=== PATIENT | male | born 1995 | race African-American/Black ===

== ENCOUNTER 2016-10-28 13:09 | Emergency (ER) | payer SELFPAY ==
[~2016-10-28] VITALS: Ht 198.1 cm; Wt 100.5 kg
[~2016-10-28 13:09] MED LIST: NO ROUTINE MEDS
[2016-10-28 13:17] VITALS: Ht 198.1 cm; Wt 100.5 kg
[2016-10-28] MEDS ORDERED: IBUP200C62 PO (13:27)
--- NOTE | 2016-10-28 13:41 | NUR ---
I&D INCISION AND DRAINAGE BY AT THIS TIME PATIENT TOLERATED WELL
[2016-10-28] MEDS ORDERED: LIDOCAINE 1% (10mg/ml) 30ml SDV SQ ONE (13:45)
[2016-10-28] MEDS ORDERED: SULF1TAB42 PO (13:57)
--- NOTE | 2016-10-28 13:57 | ERPDOC ---
Departure Disposition Decision Date: October 28, 2016 Disposition Decision Time: 14:02 Disposition: 01 DISCHARGED HOME, SELF-CARE Impression Impression Impression: Primary Impression: Abscess Severity: Mild Condition: Improved Seen By: Physician only Patient Instructions: Abscess (ED) Problems/Meds/Labs Reviewed?: Yes Medications reviewed and manag: Yes Follow up care ordered?: Yes Mental Status: Alert, Oriented Scripts Hydrocodone/Acetaminophen ([place] 5-325 Tablet) 5-325 Tablet 1 TAB PO Q4HR Y for PAIN for 3 Days, #18 TAB 0 Refills Prov: LIZZY STRINGER DO 10/28/16 Sulfamethoxazole/Trimethoprim (Bactrim Ds Tablet) 1 Each Tablet 2 TAB PO BID for 10 Days, #40 TAB 0 Refills Prov: LIZZY STRINGER DO 10/28/16 HPI - Skin General General Chief Complaint: Skin Rash/Abscess Stated Complaint: POSS CYST ON L LEG Time Seen by Provider: 13:28 Source: patient Exam Limitations: no limitations HPI - Skin General Initial Comments 21-year-old male presents to the emergency department with a chief complaint of an abscess to the left groin. Patient has a history of MRSA in the past. Patient noted onset of abscess approximately 3-4 days ago. Symptoms have progressed in a gradual manner since onset. Patient notes moderate pain locally at the area of abscess. No radiation. Pain is sharp. Pain increases with movement and direct palpation of the affected area. Pain improves with rest and positioning. Patient has no other complaints or associated symptoms. Occurred At: home Onset: Gradual Allergies: Coded Allergies: amoxicillin (Verified Allergy, Intermediate, RASH, 10/28/16) milk (Verified Allergy, Unknown, 10/28/16) Uncoded Allergies: COCKROACHES (Allergy, Mild, RASH, 10/28/16) ENVIROMENTAL ALLERGIES (Allergy, Unknown, 08/22/15) Past History Past Medical History Pt denies signifigant H Surgical History Denies Surgeries Family History Family History: Negative Social History Smoking Status: Never smoker Substance Use Type: does not use Alcohol Intake: none Review of Systems Constitutional Constitutional: DENIES: chills, fever Eyes General: DENIES: erythema, exudate Lids/Accessories: DENIES: erythema, swelling Vision: DENIES: acuity, blurring ENMT Ears: DENIES: drainage, pain Hearing: DENIES: hearing loss Balance: DENIES: ataxia, falling to one side Sinuses: DENIES: congestion, pain Nose: DENIES: nosebleeds, pain Mouth/Throat: DENIES: painful swallowing, sore throat Teeth: DENIES: pain Jaw: DENIES: pain Cardiovascular Cardiac: DENIES: chest pain, dyspnea on exertion Rhythm/Rate: DENIES: irregular beat, palpitations Vascular: DENIES: pedal edema, unilateral swelling Pulmonary Respiratory: DENIES: cough, dyspnea, pleuritic chest pain, sputum GI Upper Abdomen: DENIES: nausea, pain, vomiting Lower Abdomen: DENIES: diarrhea, pain General: DENIES: dysuria, frequency, urgency Musculoskeletal General: DENIES: joint pain, tenderness Integumentary Skin: other (abscess), DENIES: itching, rash Neurological General: DENIES: change in strength, headache, numbness, weakness Psychiatric Psychiatric: DENIES: emotional instability, suicidal ideation/attempt Endocrine Endocrine: DENIES: polydipsia, polyphagia Hematologic/Lymphatic Hematologic/Lymphatic: DENIES: frequent nosebleeds, lymphadenopathy Allergic/Immunological Allergic/Immunoligical: DENIES: allergic reactions, hives Physical Exam General General Nourishment: well nourished, well developed, appears stated age, no acute distress, adult General Body Habitus: well groomed Vitals and Pain First Documented Vital Signs Date Time Temp Pulse Resp B/P Pulse Ox O2 Delivery O2 Flow Rate FiO2 10/28/16 13:17 98.3 88 18 137/75 97 Room Air Weight: Kilograms: 100.500 Height (feet): 6 Height (inches): 6.00 Triage Pain Scale: RN VS reviewed by Provider: Yes Normal Exams: Head: Normocephalic w/o trauma Eyes: Pupils are PERRLA w/ EOMI, No scleral icterus, irritation, or foreign bodies noted ENMT: No facial trauma, nasal exudates, pharyngeal erythema, or exudates are noted Dental: No fractured, loose, or missing teeth noted Neck: Full range of motion, without adenopathy, JVD, bruits or thyromegaly Chest/Resp: Clear all bajwa, with good airflow, and symmetry bilaterally CV: Regular rate and rhythm, without murmur or gallop, Pulses 2+ all extremities, capillary refill, <2 seconds all ext., no pedal edema noted Abdomen: Bowel sounds positive, soft, non-tender, non-distended, no hepatosplenomegaly, masses or bruits noted Lymphatic: No lymphadenopathy, or lymphedema noted Musculoskeletal: No tenderness, or deformity noted, good range of motion, all extremities Integumentary: No rashes, hives, or bruising noted, hair and nails, without abnormality Neurologic: Patient is alert, and oriented, cranial nerves, motor/sensory/ cerebellar, exams w/o gross deficits, to observation Psychiatric: Patient exhibits, appropriate attention, emotion and affect Integumentary (brief) Comments 3-4 cm area of fluctuant tissue consistent with abscess. There is pointing. No expanding cellulitis or lymphangitis. Induration is present. Differential Diagnoses Considering: Abrasion, Abscess, Carbuncle, Folliculitis, Furuncle Procedures Incision and Drainage Procedure I&D : Site: L groin Prep: hibiclens Anesthetic: 1% Lidocaine Blade Size: #11 Drainage: moderate purulent Amount (cc's): 10 cc Culture Obtained?: No Dressing: Yes Packing: plain gauze Antibiotics: bactrim ds Progress Results/Orders Orders Procedure Category Date Status Time Hydrocodone/Acetaminophen PHA 10/28/16 Complete ([place] 7.5/325 13:45 Lidocaine 1% PHA 10/28/16 Complete (Xylocaine 1%) 13:45 Medications Current ED Medications Acetaminophen/ Hydrocodone Bitart ([place] 7.5/325) 1 tab O ONCE PO Last administered on 10/28/16 13:39; Start 10/28/16 at 13:45; Stop 10/28/16 at 13:47 ; Status DC Lidocaine HCl (Xylocaine 1%) 100 mg O ONCE SQ Last administered on 10/28/16 13:41; Start 10/28/16 at 13:45; Stop 10/28/16 at 13:47; Status DC Progress Progress Patient was given [place] 7.5 mg by mouth 1 in the emergency department with improvement of symptoms. Patient underwent incision and drainage of the abscess without complication in the emergency Department. Patient tolerated procedure well and without difficulty. Patient is discharged home in improved condition. Prescription for [place] and Bactrim DS are provided. Patient is in agreement with the current plan of management. Patient is to follow-up as instructed with wound check in 2 days. Patient is to return to the emergency department if his condition worsens or changes in any manner. LIZZY STRINGER DO October 28, 2016 13:57
[2016-10-28] MEDS ORDERED: HYDR-4246 PO (14:03)
[2016-10-28 14:10] VITALS: BP 137/75; PULSE 88; RESP 18; TEMP 98.3; O2SAT 97
--- NOTE | 2016-10-28 14:10 | NUR ---
DISMISS INSTRUCTIONS REVIEWED AND GIVEN TO PATIENT VERBALIZED UNDERSTANDING RX X 2 GIVEN AMBULATES TO EXIT
== END 2016-10-28 14:10 | disposition home or self-care (01) ==
LOC: ED 13:09
DX: L02.214 Cutaneous abscess of groin (principal); Z86.14 Personal history of Methicillin resistant Staphylococcus aureus infection